=== PATIENT | female | born 1945 | race Caucasian/White ===

== ENCOUNTER 2016-07-20 09:55 | Observation (INO) | payer OTHER ==
[~2016-07-20] VITALS: Ht 170.2 cm; Wt 85.6 kg
[~2016-07-20 09:55] MED LIST: ADVIL200 MG PO; AMLODIPINE BESYL5 MG; AMLODIPINE BESYL5 MG PO; ASPIR-LOW81 MG PO; AZITHROMYCIN250 MG; BETHANECHOL CHL25 MG PO; COLACE100 MG PO; DELTASONE20 M1 PO; FLOVENT 44120 INHALA IH; HYCODAN SYRUP480 ML PO; HYDROCHLOROTHIA25 MG PO; NITROSTAT0.4 MG SL; OMEPRAZOLE20 MG; OMEPRAZOLE20 MG PO; PREDNISONE20 MG; PROAIR HFA8.5 GM; PROAIR HFA8.5 GM IH; PROTONIX40 MG PO; PROVENTIL,2.5 MG/3 M IH; PROVENTIL17 GM IH; SINGULAIR10 MG PO; ST. JOSEPH ASPI81 MG PO; URECHOLINE25 MG PO; VENTOLIN HFA18 GM IH; VITAMIN B12 100MCG PO; VITAMIN D2000 UNIT PO; VITAMIN D31000 UNIT PO; ZITHROMAX Z-PA250 MG PO; ZYRTEC10 M2 PO; ZYRTEC10 M3 PO; ZyrTEC PO
[2016-07-20 17:42] VITALS: BP 140/82
[2016-07-20 19:08] VITALS: BP 135/73
[2016-07-20 23:39] VITALS: BP 106/64
[2016-07-21 04:19] VITALS: BP 112/69
[2016-07-21 07:02] LABS: EOSINOPHIL (%) 3.8 % (0-5); EOSINOPHIL COUNT 0.3 K/uL (0-0.3); HEMATOCRIT 37.1 % (36.0-46.0); IMMATURE GRANULOCYTE (%) 0.3 % (0.0-0.7); LYMPHOCYTE COUNT 1.6 K/uL (1.0-2.8); MCH 28.7 PG (29.0-34.0); MCHC 34.2 G/DL (30.0-36.0); MCV 83.9 FL (83-99); MONOCYTE (%) 5.2 % (3-12); MONOCYTE COUNT 0.4 K/uL (0-0.8); NEUTROPHIL (%) 68.8 % (45-76); NEUTROPHIL COUNT 5.1 K/uL (1.8-6.4); PLATELET COUNT 164 K/uL (156-360); RBC DIS.WIDTH-CV 13.3 % (11.8-14.6); RBC DIS.WIDTH-SD 40.8 % (39-53); RED BLOOD COUNT 4.42 M/uL (3.80-5.20); WHITE BLOOD COUNT 7.5 K/uL (4.1-10.2)
[2016-07-21 07:37] LABS: ANION GAP 10 MEQ/L (2-14); CHLORIDE 106 MEQ/L (99-109); GFR ESTIMATE (CALCULATED) 52 mL/min/; GLUCOSE 92 mg/dL (70-99); POTASSIUM 3.5 MEQ/L (3.7-5.4); SAMPLE HEMOLYSIS CHECK 0; SAMPLE ICTERIC CHECK 0; SAMPLE LIPEMIA CHECK 0; SODIUM 141 MEQ/L (136-147); UREA NITROGEN (BUN) 12 mg/dL (9-23)
[2016-07-21 09:07] VITALS: BP 138/74
[2016-07-21] MEDS ORDERED: CLOPIDOGREL75 MG PO (11:00)
[2016-07-21] MEDS ORDERED: ATORVASTATIN CA40 MG PO (11:00)
[2016-07-21 11:18] VITALS: BP 135/76
== END 2016-07-21 12:11 | disposition home or self-care (01) ==
LOC: CATH 09:55 → 2SOUTH 13:45 → 4EAST 17:36
PROVIDERS: Internal Medicine Cardiovascular Disease
DX: I25.10 Atherosclerotic heart disease of native coronary artery without angina pectoris (principal); I10 Essential (primary) hypertension; K21.9 Gastro-esophageal reflux disease without esophagitis; E78.5 Hyperlipidemia, unspecified; I73.9 Peripheral vascular disease, unspecified; Z79.82 Long term (current) use of aspirin; R07.9 Chest pain, unspecified; M79.602 Pain in left arm
CPT/HCPCS: 80048; 85025; 85347; 93005; C1725; C1769; C1874; C1887; G0378; J1644; J2250; J3010; J3246

== ENCOUNTER 2017-01-25 09:49 | Day surgery (SDC) | payer OTHER ==
[~2017-01-25] VITALS: Ht 170.2 cm; Wt 82.0 kg
[~2017-01-25 09:49] MED LIST changes: +ATORVASTATIN CA40 MG PO; +CLOPIDOGREL75 MG PO; +CRESTOR10 MG PO; +K-DUR20 MEQ PO; +LOPRESSOR25 MG PO; +POTASSIUM CHLO10 ME3 PO; +YUVAFEM10 MCG VG; +ZETIA10 MG PO
== END 2017-01-25 18:20 | disposition home or self-care (01) ==
LOC: CATH 09:49
DX: I25.10 Atherosclerotic heart disease of native coronary artery without angina pectoris (principal); I10 Essential (primary) hypertension; I73.9 Peripheral vascular disease, unspecified; J45.909 Unspecified asthma, uncomplicated; E78.2 Mixed hyperlipidemia; Z79.82 Long term (current) use of aspirin; Z79.02 Long term (current) use of antithrombotics/antiplatelets
CPT/HCPCS: 85347; C1769; C1887; J0153; J1644; J2250; J3010; J7050

== ENCOUNTER 2017-04-15 08:44 | Emergency (ER) | payer OTHER ==
[~2017-04-15] VITALS: Ht 170.2 cm; Wt 83.9 kg
[2017-04-15] MEDS ORDERED: INDOCIN50 MG PO (11:24)
[2017-04-15 11:32] VITALS: BP 137/89
== END 2017-04-15 11:33 | disposition home or self-care (01) ==
LOC: EME 08:44
PROC: 0H9LXZZ Drainage of Left Lower Leg Skin, External Approach (ICD-10-PCS; principal; 2017-04-15)
DX: L72.3 Sebaceous cyst (principal); J45.909 Unspecified asthma, uncomplicated; Z79.82 Long term (current) use of aspirin
CPT/HCPCS: 99281; 99284

== ENCOUNTER 2017-07-21 08:50 | Emergency (ER) | payer OTHER ==
[~2017-07-21] VITALS: Ht 170.2 cm; Wt 86.2 kg
[~2017-07-21 08:50] MED LIST changes: +INDOCIN50 MG PO
[2017-07-21 09:28] LABS: BASOPHIL (%) 0.3 % (0-1); EOSINOPHIL (%) 0.3 % (0-5); HEMATOCRIT 41.4 % (36.0-46.0); HEMOGLOBIN 13.8 G/DL (11.9-15.5); IMMATURE GRANULOCYTE (%) 0.6 % (0.0-0.7); LYMPHOCYTE (%) 24.1 % (15-42); LYMPHOCYTE COUNT 1.6 K/uL (1.0-2.8); MCH 28.3 PG (29.0-34.0); MCHC 33.3 G/DL (30.0-36.0); MONOCYTE COUNT 0.5 K/uL (0-0.8); NEUTROPHIL (%) 67.7 % (45-76); NEUTROPHIL COUNT 4.4 K/uL (1.8-6.4); PLATELET COUNT 191 K/uL (156-360); RBC DIS.WIDTH-CV 13.2 % (11.8-14.6); RBC DIS.WIDTH-SD 40.6 % (39-53); RED BLOOD COUNT 4.87 M/uL (3.80-5.20); WHITE BLOOD COUNT 6.6 K/uL (4.1-10.2)
[2017-07-21 09:41] LABS: CHLORIDE 108 mEq/L (99-109); POTASSIUM 3.9 mEq/L (3.7-5.4); SODIUM 142 mEq/L (136-147)
[2017-07-21 09:42] LABS: GLUCOSE 72 mg/dL (70-99)
[2017-07-21 09:46] LABS: GFR ESTIMATE (CALCULATED) 58 mL/min/
[2017-07-21 09:47] LABS: UREA NITROGEN (BUN) 18 mg/dL (9-23)
[2017-07-21 09:50] LABS: TROP-I INTERPRETATION NEGATIVE; TROPONIN-I 0.02 ng/mL (0.0-0.30)
[2017-07-21] MEDS ORDERED: TAMIFLU75 MG PO (11:01)
[2017-07-21] MEDS ORDERED: PREDNISONE50 MG PO (11:01)
[2017-07-21] MEDS ORDERED: PHENERGAN-CODE120 ML PO (11:19)
[2017-07-21 11:32] VITALS: BP 161/82
== END 2017-07-21 11:32 | disposition home or self-care (01) ==
LOC: EME 08:50
PROVIDERS: Emergency Medicine
DX: J44.1 Chronic obstructive pulmonary disease with (acute) exacerbation (principal); J10.1 Influenza due to other identified influenza virus with other respiratory manifestations; R94.31 Abnormal electrocardiogram [ECG] [EKG]; Z79.82 Long term (current) use of aspirin; Z90.49 Acquired absence of other specified parts of digestive tract; Z90.710 Acquired absence of both cervix and uterus
CPT/HCPCS: 71045; 80048; 83880; 84484; 85025; 85610; 85730; 87502; 93005; 94640; J2930